=== PATIENT | male | born 1980 | race African-American/Black ===

== ENCOUNTER 2020-10-29 10:13 | Emergency (ER) | payer MEDICAID, OTHER ==
[~2020-10-29] VITALS: Ht 177.8 cm; Wt 100.0 kg
[~2020-10-29 10:13] MED LIST: BACLOFEN; DOCUSATE; GABAPENTIN; HYDROCODONE; MOTRIN; OXYBUTYNIN; RANTIDINE; SENNA LAX; TOFRANIL; VICODIN; ZOLPIDEM
[2020-10-29 11:10] LABS: BASOPHILS % 0.3 % (0.0-2.0); EOSINOPHILS % 1.3 % (0.0-5.0); HEMATOCRIT. 40.3 % (42.0-52.0); HEMOGLOBIN. 13.4 g/dL (14.0-18.0); LYMPHOCYTES % 29.5 % (20.0-50.0); MEAN CORPUSCULAR VOLUME 89.9 fL (80.0-94.0); MEAN PLATELET VOLUME 9.8 fl (7.4-10.4); MONOCYTES % 5.4 % (2.0-8.0); NEUTROPHILS % 63.5 % (40.0-76.0); PLATELET 218 x1000/uL (130-400); RED BLOOD CELL COUNT 4.48 mill/uL (4.7-6.1); RED CELL DISTRIBUTION WIDTH 14.6 % (11.6-14.6)
[2020-10-29 11:15] LABS: CHLORIDE 108 mEq/L (98-107)
[2020-10-29 11:21] LABS: ETHANOL BLOOD < 10 mg/dL
[2020-10-29 12:08] LABS: CLARITY URINE CLEAR (CLEAR); COLOR URINE YELLOW (YELLOW); KETONES URINE 1+ (NEGATIVE); LEUKOCYTE ESTERASE URINE 2+ (NEGATIVE); NITRITE URINE NEGATIVE (NEGATIVE); OCCULT BLOOD URINE NEGATIVE (NEGATIVE); PH URINE 5.5 (4.5-8.0); PROTEIN URINE NEGATIVE (NEGATIVE); SPECIFIC GRAVITY URINE 1.018 (1.005-1.030)
[2020-10-29 12:23] LABS: *AMPHETAMINES SCREEN URINE NEGATIVE (NEGATIVE); *BARBITURATES SCREEN URINE NEGATIVE (NEGATIVE); *BENZODIAZEPINES SCREEN URINE NEGATIVE (NEGATIVE); *COCAINE SCREEN URINE NEGATIVE (NEGATIVE)
[2020-10-29 12:24] LABS: CANNABINOID URINE SCREEN PRESUMTIVE POSITIVE (NEGATIVE); METHADONE URINE SCREEN NEGATIVE (NEGATIVE); OPIATES URINE SCREEN PRESUMTIVE POSITIVE (NEGATIVE); PHENCYCLIDINE URINE SCREEN NEGATIVE (NEGATIVE)
[2020-10-29] MEDS ORDERED: HYDROCODONE/ACETAMINOPHEN 5/325MG TABLET PO ONE (13:15)
[2020-10-29] MEDS ORDERED: IOHEXOL-300 100 ML BOTTLE ONE ×2 (14:54→23:29)
[2020-10-29] MEDS ORDERED: ACET-2708 MT (16:24)
[2020-10-29] MEDS ORDERED: IBUP-2028 MT (16:25)
[2020-10-29] MEDS ORDERED: METH500T4 MT (16:26)
[2020-10-29] MEDS ORDERED: CEPH500T MT (16:26)
[2020-10-29] MEDS ORDERED: MAGN296S70 PO (16:27)
[2020-10-29 21:30] VITALS: BP 114/78
== END 2020-10-29 21:45 | disposition home or self-care (01) ==
LOC: ER 10:13
DX: R82.81 Pyuria (principal); I88.0 Nonspecific mesenteric lymphadenitis; I10 Essential (primary) hypertension
CPT/HCPCS: 36415; 74177; 80048; 80076; 80305; 80320; 81003; 83690; 85025; 87086; 87106; 93005; 99285; Q9967; G0480

== ENCOUNTER 2021-04-15 19:08 | Emergency (ER) | payer MEDICAID ==
[~2021-04-15] VITALS: Ht 188 cm; Wt 95.0 kg
[~2021-04-15 19:08] MED LIST changes: +ACET-2708 MT; +CEPH500T MT; +IBUP-2028 MT; +MAGN296S70 PO; +METH500T4 MT
[2021-04-15] MEDS ORDERED: KETOROLAC 30MG/ML VIAL IV STA (20:31)
[2021-04-15 20:44] LABS: BASOPHILS % 0.7 % (0.0-2.0); EOSINOPHILS % 1.2 % (0.0-5.0); HEMATOCRIT. 41.7 % (42.0-52.0); HEMOGLOBIN. 13.9 g/dL (14.0-18.0); LYMPHOCYTES % 34.4 % (20.0-50.0); MEAN CORPUSCULAR HEMOGLOBIN 29.2 pg (28.0-32.0); MEAN CORPUSCULAR VOLUME 87.7 fL (80.0-94.0); MEAN PLATELET VOLUME 9.9 fl (7.4-10.4); MONOCYTES % 6.5 % (2.0-8.0); NEUTROPHILS % 57.2 % (40.0-76.0); PLATELET 201 x1000/uL (130-400); RED BLOOD CELL COUNT 4.76 mill/uL (4.7-6.1); RED CELL DISTRIBUTION WIDTH 15.7 % (11.6-14.6)
[2021-04-15] MEDS ORDERED: SODIUM CHLORIDE 0.9% 1,000 ML IV ONE (20:45)
[2021-04-15 20:48] LABS: CHLORIDE 109 mEq/L (98-107)
[2021-04-15 20:55] LABS: CLARITY URINE CLEAR (CLEAR); COLOR URINE YELLOW (YELLOW); KETONES URINE NEGATIVE (NEGATIVE); LEUKOCYTE ESTERASE URINE 3+ (NEGATIVE); NITRITE URINE NEGATIVE (NEGATIVE); OCCULT BLOOD URINE NEGATIVE (NEGATIVE); PROTEIN URINE NEGATIVE (NEGATIVE); SPECIFIC GRAVITY URINE 1.012 (1.005-1.030)
[2021-04-15] MEDS ORDERED: IOHEXOL-300 100 ML BOTTLE ONE (23:14)
[2021-04-16] MEDS ORDERED: CEFU500T41 MT (00:19)
[2021-04-16] MEDS ORDERED: ACETAMINOPHEN 325MG TABLET PO ONE (08:15)
[2021-04-16 11:45] VITALS: BP 180/84
== END 2021-04-16 12:30 | disposition home or self-care (01) ==
LOC: ER 19:08
DX: N39.0 Urinary tract infection, site not specified (principal); F12.10 Cannabis abuse, uncomplicated; G82.20 Paraplegia, unspecified; I10 Essential (primary) hypertension; Z87.828 Personal history of other (healed) physical injury and trauma; Z98.1 Arthrodesis status
CPT/HCPCS: 36415; 74177; 80053; 81003; 83690; 85025; 87077; 87086; 87186; 93005; 96361; 96374; 99285; J1885; J7030; Q9967

== ENCOUNTER 2021-08-05 12:15 | Emergency (ER) | payer MEDICAID ==
[~2021-08-05] VITALS: Ht 172.7 cm; Wt 77.0 kg
[~2021-08-05 12:15] MED LIST changes: +CEFU500T41 MT
[2021-08-05] MEDS ORDERED: ACETAMINOPHEN 325MG TABLET PO NR (13:22)
[2021-08-05] MEDS ORDERED: SODIUM CHLORIDE 0.9% 1000ML BAG (SEPSIS BOLUS) IV ONE (13:30)
[2021-08-05] MEDS ORDERED: SODIUM CHLORIDE 0.9% IV SCH (13:30)
[2021-08-05] MEDS ORDERED: SODIUM CHLORIDE 0.9% 2,310 ML IV SCH (13:30)
[2021-08-05] MEDS: PIPERACILLIN/TAZ 3.375G PREMIX 50 ML IV NR ×2 (15:22→16:10)
[2021-08-05 15:38] LABS: BASOPHILS % 0.6 % (0.0-2.0); EOSINOPHILS % 0.6 % (0.0-5.0); HEMATOCRIT. 42.8 % (42.0-52.0); MEAN CORPUSCULAR HEMOGLOBIN 28.5 pg (28.0-32.0); MEAN CORPUSCULAR VOLUME 87.1 fL (80.0-94.0); MEAN PLATELET VOLUME 10.5 fl (7.4-10.4); MONOCYTES % 7.2 % (2.0-8.0); NEUTROPHILS % 70.6 % (40.0-76.0); PLATELET 215 x1000/uL (130-400); RED BLOOD CELL COUNT 4.91 mill/uL (4.7-6.1); RED CELL DISTRIBUTION WIDTH 15.1 % (11.6-14.6)
[2021-08-05 15:50] LABS: CHLORIDE 107 mEq/L (98-107)
[2021-08-05] MEDS ORDERED: IBUPROFEN 400MG TABLET PO ONE (18:00)
[2021-08-05 19:17] LABS: CLARITY URINE TURBID (CLEAR); COLOR URINE YELLOW (YELLOW); KETONES URINE 1+ (NEGATIVE); LEUKOCYTE ESTERASE URINE 3+ (NEGATIVE); NITRITE URINE POSITIVE (NEGATIVE); OCCULT BLOOD URINE 2+ (NEGATIVE); PROTEIN URINE 1+ (NEGATIVE); SPECIFIC GRAVITY URINE 1.015 (1.005-1.030)
[2021-08-05 20:00] VITALS: BP 105/67
[2021-08-05] MEDS ORDERED: AMOX-424 MT (20:14)
[2021-08-05] MEDS ORDERED: KETOROLAC 15MG/ML VIAL IV ONE (20:30)
== END 2021-08-05 21:10 | disposition home or self-care (01) ==
LOC: ER 12:15
DX: R10.9 Unspecified abdominal pain (principal); F12.10 Cannabis abuse, uncomplicated
CPT/HCPCS: 36415; 71045; 74176; 80048; 80076; 81003; 83605; 83690; 84145; 85025; 87040; 87077; 87086; 87186; 96365; 96366; 96375; 99285; J1885; J2543